=== PATIENT | female | born 1950 | race Caucasian/White ===

== ENCOUNTER 2022-05-28 09:18 | Emergency (ER) | payer MEDICARE ==
[~2022-05-28] VITALS: Ht 160 cm; Wt 68.0 kg
[2022-05-28] VITALS (11 sets, daily range): BP systolic 79–110; BP diastolic 33–58
[2022-05-28] MEDS ORDERED: PLAVIX75 MG PO (09:50)
[2022-05-28] MEDS ORDERED: ATORVASTATIN CA80 MG PO (09:50)
[2022-05-28] MEDS ORDERED: UROCIT-K 10 PO (09:51)
[2022-05-28] MEDS ORDERED: ANASTROZOLE1 MG PO (09:51)
[2022-05-28] MEDS ORDERED: ASPIRIN81 MG PO (09:51)
[2022-05-28 10:55] LABS: URINE BILIRUBIN - DIPSTICK NEGATIVE (NEGATIVE); URINE BLOOD DIPSTICK LARGE (NEGATIVE); URINE COLOR BROWN; URINE GLUCOSE - DIPSTICK NEGATIVE (NEGATIVE); URINE KETONE NEGATIVE (NEGATIVE); URINE PH 8.5 (4.5-8.0); URINE PROTEIN - DIPSTICK 30 mg/dL (NEG-TRACE); URINE UROBILINOGEN - DIPSTICK 0.2 E.U./dL (0.2)
[2022-05-28 10:59] LABS: BASO% 0.2 % (0-3); EOS% 0.2 % (0-8); HEMOGLOBIN 12.8 g/dl (12.0-16.0); IMMATURE GRANULOCYTES 0.2 % (0.0-5.0); LYMPH% 2.9 % (15-41); MEAN CORPUSCULAR HGB 31.8 pG CALC (26.0-32.0); MEAN CORPUSCULAR HGB CONC 32.8 g/dL CAL (32.0-36.0); MONO% 6.7 % (2-13); NEUT# 11.83 thou/uL (2.00-7.15); NEUT% 89.8 % (42-76); RED BLOOD COUNT 4.02 mill/uL (4.20-5.60); RED CELL DISTRI WIDTH 14.7 % (11.5-15.5)
[2022-05-28 11:02] LABS: URINE LEUK ESTERASE SMALL (NEGATIVE); URINE NITRITE - DIPSTICK NEGATIVE (Negative)
[2022-05-28 11:11] LABS: URINE BACTERIA FEW hpf; URINE RBC TNTC RBC/hpf (0-5); URINE SQUAMOUS EPITHELIAL CELL FEW EPI/hpf (0-FEW)
[2022-05-28 11:15] LABS: ALBUMIN 4.1 g/dL (3.2-5.0); ALKALINE PHOSPHATASE 113 u/l (38-126); ANION GAP 10 (6-22 (CALC)); BILIRUBIN, TOTAL 0.4 mg/dL (0.0-1.4); BUN 15 mg/dL (8-23); BUN/CREATININE RATIO 22 (12-20 (CALC)); CARBON DIOXIDE 27 mmol/l (22-30); CHLORIDE 106 mmol/l (95-108); CREATININE 0.7 mg/dL (0.5-1.0); GFR FOR AFR.AMER. > 60 ML/MIN (>=60 (CALC)); GFR OTHER RACES > 60 ML/MIN (>=60 (CALC)); SGOT/AST 27 u/l (9-36); SODIUM 140 mmol/l (137-146)
[2022-05-28] MEDS ORDERED: OMNI-PAC300 MG PO (11:25)
== END 2022-05-28 11:40 | disposition home or self-care (01) ==
LOC: ED 09:18
PROVIDERS: Family Medicine
DX: N39.0 Urinary tract infection, site not specified (principal); B96.20 Unspecified Escherichia coli [E. coli] as the cause of diseases classified elsewhere; Z86.73 Personal history of transient ischemic attack (TIA), and cerebral infarction without residual deficits; Z87.442 Personal history of urinary calculi